=== PATIENT | male | born 1965 | race Caucasian/White ===

== ENCOUNTER → 2020-01-18 13:45 | Outpatient (BNVA) | payer OTHER, SELFPAY | PROVIDERS: Family Provider Emergency Medicine Emergency Medical Services; Visit Provider Nurse Practitioner Family | DX: R09.81 Nasal congestion (principal); R53.83 Other fatigue; R51 Headache; Z11.59 Encounter for screening for other viral diseases | CPT/HCPCS: 87635 ==

== ENCOUNTER 2021-05-21 08:24 | Outpatient (CLI) | payer OTHER, SELFPAY ==
--- NOTE | 2021-05-21 | CT_ITS ---
WS: [id number] CT ABDOMEN AND PELVIS WITH AND WITHOUT CONTRAST HISTORY: LLQ PAIN TECHNIQUE: Unenhanced 5 mm axial imaging first performed through the abdomen. Post contrast imaging t hrough the abdomen and pelvis. Oral contrast has been provided. Sagittal and coronal reformats are s ubmitted. All CT scans at [facility] use at least one of these dose optimization techniques: automated exposure control; mA and/or kV adjustment per patient size (includes targeted exams where d ose is matched to clinical indication); or iterative reconstruction. CONTRAST: Omnipaque 300; 95 mL IV. DLP: 2090.38 mGycm COMPARISON: None available. Lung bases are clear. No nodule or mass. Heart size is normal. Small hiatal hernia. Normal size liver with hepatic steatosis. Heterogeneous mass centered within the RIGHT lobe of the li cirilo with peripheral enhancement and nodularity. There is also mild central enhancement with areas of decreased attenuation and limited enhancement. Mass measures 5.0 x 7.5 x 6.2 cm. On the delayed imagi ng there is mild increased enhancement and filling in. No bile duct dilatation. Spleen and gallbladder and pancreas are negative. No adrenal mass. Very mild perinephric stranding ar ound each kidney. No obstruction. Mild atherosclerosis aorta. Stomach is well distended. No GI tract obstruction or abnormal enhancement. There are a few diverticu la in the descending and sigmoid colon with no focal area of inflammation. The appendix is normal. No adenopathy, free fluid or free air. Urinary bladder is moderately well distended. Very mild diffuse thickening of the bladder wall is secondary to outlet obstruction most likely. No focal mass. Prostat e is not significantly enlarged. Fat-containing LEFT inguinal hernia. Degenerative disc disease L4-5 and L5-S1. No osteoblastic or osteolytic bone disease. CT/CT abdomen pelvis wo/w [id number] IMPRESSION: 1. Heterogeneous mass centered in the RIGHT lobe of the liver measures 5.0 x 7 .5 x 6.2 cm. Differential includes atypical hemangioma, primary liver neoplasm and metastatic site. No additional abnormalities within the liver. Recommend fo llow-up RIGHT upper quadrant ultrasound evaluation to further characterize this mass. 2. Distal colonic diverticulosis without acute diverticulitis. 3. No ascites or adenopathy.
[2021-05-21] MEDS: iohexol 300 mg/mL 100 mL Btl IV (12:47)
[2021-05-21] MEDS: iohexol 300 mg/mL 50 mL Btl PO (12:48)
== END 2021-05-21 08:25 | disposition home or self-care (01) ==
PROVIDERS: PCP Emergency Medicine Emergency Medical Services; Visit Provider Emergency Medicine Emergency Medical Services
DX: K57.90 Diverticulosis of intestine, part unspecified, without perforation or abscess without bleeding (principal); R16.0 Hepatomegaly, not elsewhere classified
CPT/HCPCS: 74178; Q9967

== ENCOUNTER 2022-03-30 08:35 | Outpatient (CLI) | payer OTHER, SELFPAY ==
--- NOTE | 2022-03-30 | ECG_ITS ---
[facility] Test Date: 2022-03-30 Pat Name: Erickson [place] Department: Room: Gender: Male Legal Internship: : 1965 Requested By: Cheri Rea Order Number: [id number] Ines MD: Archie Cano M.D. Interpretive Statements NAME OF STUDY: LEXISCAN SESTAMIBI STRESS TEST INDICATION: Gimenez, PROCEDURE: At the baseline, the EKG revealed normal sinus rhythm with a rate of 70 bpm. Poor R wave progression. The baseline heart was 70 bpm with a blood pressue of 131/80 mm of Hg Lexiscan was infused over a period of 20 seconds. A total of 0.4 milligrams of Lexiscan was infused. The stress phase was continued for a total of 5 minutes. Heart rate at the end of the stress phase was 80 bpm with a blood pressure 124/79 mm of Hg. The EKG at the peak infusion revealed no significant changes. Sestamibi was injected 20 seconds after the Lexiscan infusion. Heart rate at the end of the recovery phase was 78 bpm with a blood pressure of 121/71 mm of Hg. CONCLUSION: 1. No significant EKG changes with the LexiScan infusion 2. No LexiScan induced chest pain or cardiac arrhythmia 3. Normal blood pressure and heart rate response 4. Sestamibi/sestamibi perfusion scan pending; see separate report. Electronically Signed On 04-03-2022 16:01:17 CDT by Archie Cano M.D. [email or web address]
[2022-03-30 09:12] VITALS: BMI 30.1
--- NOTE | 2022-03-30 09:35 | NMCV_ITS ---
NM mary perf SPECT r/s* [id number] Erickson [place] Age: 56 Gender: M : 1965 Exam Date: 03/30/2022 10:57 Ordering Phys: Cheri Peter Technologist: EMMA Oneill Exam Location: [facility] Indications: Liver transplant candidate STRESS TEST Please see separate stress test report in [facility] for full findings IMAGE PROTOCOL Rest/Stress 1 Radiopharmaceutical Dose (mCi) Administration Site Administered by Rest: Tc-99m 10.5 IV EMMA Oneill Sestamibi Stress:Tc-99m 32.9 IV EMMA Oneill Sestamibi Rest: 30-Mar-2022 60 Discovery 630 Stress: 30-Mar-2022 30 Discovery 630 SPECT RESULTS Technical Quality: Good Raw Data Analysis: Normal Image Corrections: No attenuation or motion correction applied Summed Stress Score: 0 Summed Rest Score: 0 Summed Difference Score: 0 PERFUSION FINDINGS Fairly uniform myocardial tracer uptake with no significant perfusion abnormalities FUNCTIONAL RESULTS (calculated via Gated SPECT) Stress Image LV EF (%): 65 Stress EDV (mL):85 TID: 1.33 Stress ESV (mL):30 FUNCTIONAL FINDINGS: LV wall motion analysis revealing no gross wall motion abnormalities. Elevated transient ischemic dilatation ratio 1.33 IMPRESSIONS 1. Unremarkable Myocardial perfusion imaging 2. Normal LV ejection fraction of 65%. 3. LV wall motion analysis revealing no gross wall motion normalities. 4. Normal LV volume. The elevated transischemic dilatation ratio may suggest endocardial ischemia. However the positive predictive value of this finding is limited. Clinical correlation is recommended. Dr Archie Cano MD FACC (Electronically Signed) Final Date: 30 March 2022 18:16 S
[2022-03-30 11:41] VITALS: BP 121/71; PULSE 74
[2022-03-30] MEDS: regadenoson 0.4 Mg/5 ml Syringe IVP (11:41)
== END 2022-03-30 08:36 | disposition home or self-care (01) ==
PROVIDERS: PCP Emergency Medicine Emergency Medical Services; Visit Provider Nurse Practitioner Family
DX: C22.0 Liver cell carcinoma (principal)
CPT/HCPCS: 78452; 93017; A9500; J2785

== ENCOUNTER 2022-04-07 08:11 | Outpatient (CLI) | payer OTHER, SELFPAY ==
--- NOTE | 2022-04-07 | USCV_ITS ---
Erickson [place] Age: 56 Gender: M : 1965 Exam Date: 04/07/2022 08:46 Ordering Phys: Cheri Peter Technologist: Curtis Honeycutt [place] [facility] [place]: [place] BP: 130 / 90 HR: 74 Rhythm: Sinus Technical Quality: Adequate MEASUREMENTS (Male / Female) Normal Values 2D ECHO LV Diastolic Diameter PLAX 4.5 cm 4.2 - 5.9 / 3.9 - 5.3 cm LV Systolic Diameter PLAX 3.2 cm IVS Diastolic Thickness 0.8 cm 0.6 - 1.0 / 0.6 - 0.9 cm IVS Systolic Thickness 1.0 cm LVPW Diastolic Thickness 0.9 cm 0.6 - 1.0 / 0.6 - 0.9 cm LVPW Systolic Thickness 1.1 cm LVOT Diameter 2.0 cm LV Ejection Fraction 2D Teich 55.7 % LV Ejection Fraction MOD 2C 62.4 % LV Ejection Fraction 2C AL 64.1 % LA Diameter 3.2 cm LA Width 3.6 cm LA Height 4.0 cm RA Width 3.5 cm RA Height 4.0 cm Aorta at Sinotubular Diameter 3.3 cm IVC Diameter 1.4 cm M-MODE Aortic Annulus Diameter 3.3 cm LA Ao Ratio MM 0.9 MV E Point Septal Separation 0.5 cm DOPPLER AV Peak Velocity 108.3 cm/s LVOT Peak Velocity 77.0 cm/s AV Area Cont Eq vti 2.5 cm squared AV Area Cont Eq pk 2.3 cm squared MV Peak Velocity 66.0 cm/s MV Area PHT 5.9 cm squared Mitral E to A Ratio 0.8 MV E' Velocity 28.0 cm/s Mitral E to MV E' Ratio 5.0 Mitral E to LV E' Lateral Ratio 5.4 Mitral E to LV E' Septal Ratio 4.7 TR Peak Velocity 209.2 cm/s TR Peak Gradient 17.5 mmHg TR Mean Velocity 166.6 cm/s TR Mean Gradient 11.6 mmHg TR Velocity Time Integral 44.4 cm Right Atrial Pressure 3.0 mmHg Pulmonary Artery Systolic Pressu 20.5 mmHg RV Acceleration Time 0.1 s RV Ejection Time 0.2 s RV AcT/ET 0.4 FINDINGS Left Ventricle Normal left ventricular size and systolic function, EF 61 %. No regional wall motion abnormalities. Grade I/IV diastolic dysfunction (abnormal relaxation filling pattern), normal to mildly elevated filling pressures. Right Ventricle The right ventricle is normal in size and function. Right Atrium The right atrium is normal in size. Left Atrium The left atrium is normal in size. Mitral Valve Trace mitral valve regurgitation. Aortic Valve Trace aortic valve regurgitation. Tricuspid Valve Trace tricuspid valve regurgitation. Pulmonic Valve Trace pulmonary valve regurgitation. Pericardium Normal pericardium without effusion. Aorta Normal ascending aorta dimension. IVC Normal IVC dimension with >50% respiratory change of the inferior vena cava. CONCLUSIONS Normal left ventricular size and systolic function, EF 61 %. No regional wall motion abnormalities. Grade I/IV diastolic dysfunction (abnormal relaxation filling pattern), normal to mildly elevated filling pressures. Trace of aortic, mitral, tricuspid and pulmonic regurgitations There is no pericardial effusion. There are no intracardiac masses. No previous study is available for comparison. Dr Archie aCno MD FAC (Electronically Signed) Final Date: 07 April 2022 22:46 S
--- NOTE | 2022-04-07 08:24 | US_ITS ---
WS: [id number] ULTRASOUND ABDOMEN LIMITED CLINICAL INFORMATION: TRANSPLANT CANDIDATE COMPARISON: PET CT September 20, 2021 FINDINGS: Liver Size: Upper limits of normal Craniocaudal length: 14.6 cm. Echogenicity: Coarse Surface nodularity: None. Mass (size and location): Heterogeneous hepatic mass measuring 5.7 x 4.2 cm in the RIGHT hepatic lobe . Small amount of peripheral vascularity. This corresponds to the mass seen on the prior PET/CT consi stent with known HCC. Appearance is not significantly changed considering differences in technique. Bile ducts Intrahepatic ducts: Normal. Common bile duct diameter: 0.4 cm. Gallbladder Normal. Gallstones: None. Gallbladder sludge: None. Gallbladder wall thickening: None. Pericholecystic fluid: None. Sonographic Romeo sign: Absent. Pancreas Mild prominence of the pancreatic head. Right kidney: Normal. Hydronephrosis: None. Size: 10.1 cm x 5.0 cm x 6.2 cm. Abdominal aorta and IVC Visualized portions are normal. Ascites: None. US/US abdomen limited [id number] IMPRESSION: 1. Heterogeneous RIGHT hepatic mass similar in appearance to the prior PET/CT consistent with known HCC measuring 5.2 x 4.5 x 4.7 cm today. Small amount of p eripheral vascularity. 2. Normal gallbladder. 3. No hydronephrosis in RIGHT kidney. 4. Prominent pancreatic head is nonspecific and could be further evaluated wit h contrast-enhanced CT abdomen pelvis or MRI to exclude underlying mass.
== END 2022-04-07 08:12 | disposition home or self-care (01) ==
PROVIDERS: PCP Emergency Medicine Emergency Medical Services; Visit Provider Nurse Practitioner Family
DX: Z01.89 Encounter for other specified special examinations (principal); I08.3 Combined rheumatic disorders of mitral, aortic and tricuspid valves; R16.0 Hepatomegaly, not elsewhere classified
CPT/HCPCS: 76705; 93306

== ENCOUNTER → 2022-04-16 09:00 | Outpatient (BNVA) | payer OTHER, SELFPAY | PROVIDERS: PCP Emergency Medicine Emergency Medical Services; Visit Provider Internal Medicine Pulmonary Disease | DX: Z01.811 Encounter for preprocedural respiratory examination (principal); C22.0 Liver cell carcinoma; J45.909 Unspecified asthma, uncomplicated; G47.30 Sleep apnea, unspecified; R09.81 Nasal congestion; R06.09 Other forms of dyspnea; R51.9 Headache, unspecified; Z87.891 Personal history of nicotine dependence | CPT/HCPCS: 99204 ==

== ENCOUNTER 2022-04-21 07:54 | Outpatient (CLI) | payer OTHER, SELFPAY | END 2022-04-21 07:55 | disposition home or self-care (01) | PROVIDERS: PCP Emergency Medicine Emergency Medical Services; Visit Provider Chiropractor | DX: J45.909 Unspecified asthma, uncomplicated (principal) | CPT/HCPCS: 94010 ==

== ENCOUNTER → 2022-07-24 10:15 | Outpatient (BNVA) | payer OTHER, SELFPAY | PROVIDERS: PCP Emergency Medicine Emergency Medical Services; Visit Provider Internal Medicine Pulmonary Disease | DX: C22.0 Liver cell carcinoma (principal); Z01.811 Encounter for preprocedural respiratory examination; J45.20 Mild intermittent asthma, uncomplicated; G47.33 Obstructive sleep apnea (adult) (pediatric); Z87.891 Personal history of nicotine dependence; Z91.09 Other allergy status, other than to drugs and biological substances; R51.9 Headache, unspecified; I10 Essential (primary) hypertension | CPT/HCPCS: 99214 ==

== ENCOUNTER → 2023-01-21 09:29 | Outpatient (BNVA) | payer OTHER, SELFPAY | PROVIDERS: PCP Emergency Medicine Emergency Medical Services; Visit Provider Internal Medicine Pulmonary Disease | DX: G47.30 Sleep apnea, unspecified; J45.20 Mild intermittent asthma, uncomplicated; Z85.05 Personal history of malignant neoplasm of liver; Z94.4 Liver transplant status; Z87.891 Personal history of nicotine dependence | CPT/HCPCS: 99214 ==

== ENCOUNTER 2024-01-24 06:00 | Outpatient (RCR) | payer OTHER, SELFPAY | END 2024-02-19 23:59 | disposition home or self-care (01) | LOC: GPT 06:00 | PROVIDERS: Visit Provider Family Medicine | DX: M17.11 Unilateral primary osteoarthritis, right knee (principal) | CPT/HCPCS: 97110; 97161 ==

== ENCOUNTER 2024-02-20 06:00 | Outpatient (RCR) | payer OTHER, SELFPAY | END 2024-03-10 23:59 | disposition home or self-care (01) | LOC: GPT 06:00 | PROVIDERS: Visit Provider Family Medicine | DX: M17.11 Unilateral primary osteoarthritis, right knee (principal) | CPT/HCPCS: 97110; 97140 ==

== ENCOUNTER 2024-06-16 06:00 | Outpatient (RCR) | payer OTHER, SELFPAY | END 2024-06-20 23:59 | disposition home or self-care (01) | LOC: GPT 06:00 | PROVIDERS: Visit Provider Family Medicine | DX: Z47.1 Aftercare following joint replacement surgery (principal); Z96.652 Presence of left artificial knee joint | CPT/HCPCS: 97110; 97140; 97161 ==

== ENCOUNTER 2024-06-21 06:00 | Outpatient (RCR) | payer OTHER, SELFPAY | END 2024-07-21 23:59 | disposition home or self-care (01) | LOC: GPT 06:00 | PROVIDERS: Visit Provider Family Medicine | DX: Z47.1 Aftercare following joint replacement surgery (principal); Z96.652 Presence of left artificial knee joint | CPT/HCPCS: 97110; 97112; 97140; 97530 ==

== ENCOUNTER 2024-07-22 06:00 | Outpatient (RCR) | payer OTHER, SELFPAY | END 2024-08-18 23:59 | disposition home or self-care (01) | LOC: GPT 06:00 | PROVIDERS: Visit Provider Family Medicine | DX: Z47.1 Aftercare following joint replacement surgery (principal); Z96.652 Presence of left artificial knee joint | CPT/HCPCS: 97110; 97112; 97140; 97164; 97530 ==

== ENCOUNTER 2024-08-19 06:00 | Outpatient (RCR) | payer OTHER, SELFPAY | END 2024-09-18 23:59 | disposition home or self-care (01) | LOC: GPT 06:00 | PROVIDERS: Visit Provider Family Medicine | DX: Z47.1 Aftercare following joint replacement surgery (principal); Z96.652 Presence of left artificial knee joint | CPT/HCPCS: 97110; 97140; 97530 ==

== ENCOUNTER 2024-09-19 05:00 | Outpatient (RCR) | payer OTHER, SELFPAY | END 2024-10-18 23:59 | disposition home or self-care (01) | LOC: GPT 05:00 | PROVIDERS: Visit Provider Family Medicine | DX: Z47.1 Aftercare following joint replacement surgery (principal); Z96.652 Presence of left artificial knee joint | CPT/HCPCS: 97110; 97112; 97140; 97164; 97530 ==

== ENCOUNTER 2024-10-19 06:30 | Outpatient (RCR) | payer OTHER, SELFPAY | END 2024-11-01 13:43 | disposition home or self-care (01) | LOC: GPT 06:30 | PROVIDERS: Visit Provider Family Medicine | DX: Z47.1 Aftercare following joint replacement surgery (principal); Z96.652 Presence of left artificial knee joint | CPT/HCPCS: 97110; 97140 ==